=== PATIENT | female | born 1965 | race Caucasian/White ===

== ENCOUNTER 2017-02-16 05:35 | Emergency (ER) | payer OTHER ==
[~2017-02-16] VITALS: Ht 170.2 cm; Wt 63.5 kg
--- NOTE | 2017-02-16 05:40 | NUR ---
BIB [facility] FOR ASTHMA. PT STATES "WOKE UP AND HAD A ASTHMA ATTACK, RAN OUT, OF MEDICATION" PT SPEAKING IN FULL SENTENCES. PT AOX4 RR EVEN AND UNLABORED. NO SOB NOTED. NAD NOTED. NO NVD AT THIS TIME. PT GOWNED AND PLACED ON MONITOR. PER RA PLACED IV ON LEFT FA 20, INTACT AND PATENT. PER RA ON THE FIELD BS 91. PT WAITING FOR MD AREVALO.
--- NOTE | 2017-02-16 05:51 | NUR ---
DR. COON AT BEDSIDE FOR EVAL.
--- NOTE | 2017-02-16 05:53 | NUR ---
RT CALLED FOR BREATHING TX.
[2017-02-16] MEDS ORDERED: LORAZEPAM 1 MG TABLET ONE (05:54)
[2017-02-16] MEDS ORDERED: predniSONE 20 MG TABLET ONE (05:54)
[2017-02-16] MEDS ORDERED: IPRATROPIUM NEB FS 0.5 MG/2.5 ML AMPUL.NEB ONE (05:57)
[2017-02-16] MEDS ORDERED: ALBUTEROL FS 2.5 MG/3 ML VIAL.NEB ONE (05:57)
--- NOTE | 2017-02-16 05:59 | NUR ---
RT AT BEDSIDE
[2017-02-16] MEDS ORDERED: LORAZEPAM 1 MG TABLET PO ONE (06:00)
[2017-02-16] MEDS ORDERED: predniSONE 20 MG TABLET PO ONE (06:00)
[2017-02-16] MEDS ORDERED: IPRATROPIUM NEB FS 0.5 MG/2.5 ML AMPUL.NEB NEB ONE (06:00)
[2017-02-16] MEDS ORDERED: ALBUTEROL FS 2.5 MG/3 ML VIAL.NEB NEB ONE (06:00)
--- NOTE | 2017-02-16 06:14 | NUR ---
XRAY AT BEDSIDE
[2017-02-16 06:44] VITALS: BP 118/76
--- NOTE | 2017-02-16 06:44 | NUR ---
IV removed. Catheter intact and site benign. Pressure and 4x4 applied to site. No bleeding noted. Patient discharged to home in stable condition. Written and verbal after care instructions given. Patient verbalizes understanding of instruction. ambulatory with a steady gait.
== END 2017-02-16 06:46 | disposition home or self-care (01) ==
LOC: ER 05:36
DX: J45.909 Unspecified asthma, uncomplicated (principal); F41.9 Anxiety disorder, unspecified
CPT/HCPCS: 71010; 94640 ×2; 99284; A4606; J7512; Z7610

== ENCOUNTER 2019-01-21 00:38 | Inpatient (IN) | payer MEDICAID, OTHER ==
[2019-01-21] VITALS (43 sets, daily range): BP systolic 72–155; BP diastolic 21–123
[~2019-01-21] VITALS: Ht 172.7 cm; Wt 71.7 kg
--- NOTE | 2019-01-21 00:42 | NUR ---
DR. GROSSMAN, RT, RN AND EMT AT BEDSIDE FOR INTUBATION
--- NOTE | 2019-01-21 00:44 | NUR ---
PT WAS ORALLY INTUBATED IN ER WITH 7.0 ETT SECURED @ 22 CM @ THE LIP . PT PLACED ON THE VENT WITH THE SETTINGS OF AC 16,500,PEEP 5, FIO2 100% . POSITIVE COLOR CHANGED CO2 DETECTOR , EQUAL BILATERAL CHEST RISE. ETT PATENT AND SECURED. VENT PLUGGED INTO RED OUTLET, VENT ALARMS ON AND AUDIBLE. AMBU BAG AT BEDSIDE. SUCTIONED MODERATE AMOUNT OF WHITE THICK SECRETIONS. WILL CONTINUE TO MONITOR THE PT.
--- NOTE | 2019-01-21 00:44 | NUR ---
PT INTUBATED. 23 CM AT THE LIP. ET TUBE SIZE 7.
[2019-01-21] MEDS ORDERED: ROCURONIUM BROMIDE 100 MG/10 ML VIAL IV ONE (01:00)
[2019-01-21] MEDS ORDERED: ETOMIDATE 2 MG/ML VIAL IV ONE ×2 (01:00→04:00)
--- NOTE | 2019-01-21 01:00 | NUR ---
BLOOD DRAWN AND GIVEN TO LAB
--- NOTE | 2019-01-21 01:00 | NUR ---
RADIOLOGY AT BEDSIDE FOR XRAY
[2019-01-21 01:09] LABS: BASOPHILS # (AUTO) 0.3 /CMM (0.0-0.2); BASOPHILS % (AUTO) 1.7 % (0.0-2.0); EOSINOPHILS % (AUTO) 6.4 % (0.0-6.0); HEMATOCRIT 48 % (33-45); HEMOGLOBIN 15.6 g/dL (11.5-14.8); LYMPHOCYTES # (AUTO) 3.2 /CMM (0.8-4.8); LYMPHOCYTES % (AUTO) 19.7 % (20.0-44.0); MEAN CORPUSCULAR HGB CONC 33 g/dl (31.0-36.0); MEAN CORPUSCULAR VOLUME 100 fL (82-100); MONOCYTES # (AUTO) 0.9 /CMM (0.1-1.30); MONOCYTES % (AUTO) 5.3 % (2.0-12.0); NEUTROPHILS # (AUTO) 10.9 /CMM (1.8-8.9); NEUTROPHILS % (AUTO) 66.9 % (43.0-81.0); PLATELET COUNT (AUTO) 379 /CMM (150-450); WHITE BLOOD COUNT (AUTO) 16.3 K/uL (4.3-11.0)
--- NOTE | 2019-01-21 01:12 | NUR ---
CALLED FOR ICU BED
[2019-01-21] MEDS ORDERED: ALBUTEROL FS 2.5 MG/0.5 ML VIAL.NEB ONE (01:16)
[2019-01-21 01:20] LABS: CALCIUM, SERUM 9.7 mg/dL (8.5-10.1); CARBON DIOXIDE 26 mmol/L (21-32); CHLORIDE 106 mmol/L (98-107); CREATININE 1.1 mg/dL (0.6-1.3); GLUCOSE 165 mg/dL (74-106); POTASSIUM 4.1 mmol/L (3.5-5.1); SODIUM SERUM 147 mmol/L (136-145); UREA NITROGEN, BLOOD 14 mg/dL (7-18)
[2019-01-21 01:27] LABS: ALANINE AMINOTRANSFERASE 28 U/L (12-78); ALBUMIN 4.6 g/dL (3.4-5.0); ALKALINE PHOSPHATASE 133 U/L (46-116); ASPARTATE AMINOTRANSFERASE 25 U/L (15-37); BILIRUBIN,DIRECT 0.1 mg/dL (0.0-0.2); BILIRUBIN,TOTAL 0.3 mg/dL (0.2-1.0); TOTAL PROTEIN, SERUM 8.9 g/dL (6.4-8.2)
[2019-01-21] MEDS ORDERED: ALBUTEROL FS 2.5 MG/0.5 ML VIAL.NEB NEB ONE ×2 (01:30→09:30)
[2019-01-21] MEDS ORDERED: PROPOFOL 100 ML ONE (01:41)
[2019-01-21] MEDS ORDERED: IV NS 0.9% 1,000 ML BAG IV ONE ×3 (02:00→04:30)
[2019-01-21] MEDS ORDERED: PROPOFOL 100 ML IV PRN (02:00)
[2019-01-21 02:03] LABS: ABG BASE EXCESS -9.2 mmol/L; ABG OXYGEN SATURATION 99.3 % (92.0-98.5); ABG PCO2 87.4 mmHg (35.0-45.0); ABG PH 7.047 (7.350-7.450); ABG PO2 513.7 mmHg (75.0-100.0); AaDO2 111.9 mmHg; COHb 0.1 % (0.5-1.5); MetHb 0.6 % (0.0-1.5); O2Hb 98.6 % (94.0-97.0); PEEP,BG 5 cm H2O; SITE, ABG Right Radial; VENT MODE, BG AC 16; VT, ABG 500 mL
[2019-01-21 02:05] LABS: APPEARANCE,URINE SL CLOUDY (CLEAR); BILIRUBIN,URINE NEGATIVE (NEGATIVE); BLOOD, URINE 1+ Ery/uL (NEGATIVE); COLOR,URINE YELLOW (YELLOW); KETONES,URINE NEGATIVE (NEGATIVE); LEUKOCYTE ESTERASE ,URINE NEGATIVE (NEGATIVE); NITRITE, URINE NEGATIVE (NEGATIVE); PROTEIN,URINE 3+ mg/dl (NEGATIVE); UGLUCOSE 2+ mg/dL (NEGATIVE); UROBILINOGEN,URINE 0.2 EU/dL (0.2)
--- NOTE | 2019-01-21 02:10 | NUR ---
POST ABG RESULTS SHOWN TO DR. GROSSMAN. ORDERS TO CHANGE RATE TO 20.
--- NOTE | 2019-01-21 02:34 | NUR ---
PT TAKEN TO RADIOLOGY VIA [facility] WITH RT AND RN AT BEDSIDE
--- NOTE | 2019-01-21 02:59 | NUR ---
FAMILY AT BEDSIDE
--- NOTE | 2019-01-21 03:02 | NUR ---
SELF EXTUBATED. MD NOTIFIED. CALLED RT. RN AT BEDSIDE.
--- NOTE | 2019-01-21 03:09 | NUR ---
PT INTUBATED. 22 CM AT THE LIP. ET TUBE SIZE 7.
--- NOTE | 2019-01-21 03:20 | NUR ---
PT PULLED OUT THEIR ET TUBE AT 0302. PT WAS THEN INTUBATED WITH A 7.0 ETT SECURED AT 22CM AT THE LIP. EQUAL BILATERAL BREATH SOUNDS AND CHEST RISE NOTED. BOX BLANK MACHINE OPERATOR HELPER WAS DONE. PT PLACED BACK ON VENT AT AC 20, 500, 100%, +5. ALARMS SET AND AUDIBLE WTIH BVM BY BEDSIDE. SUCTIONED MODERATE AMOUNT OF THICK WHITE SECRETIONS. WILL CONT TO MONITOR PT.
--- NOTE | 2019-01-21 03:32 | NUR ---
REPORT GIVEN TO BELLA ETIENNE FOR CHARANJIT
--- NOTE | 2019-01-21 03:45 | NUR ---
PT TRANSFERRED PER ACLS PROTOCOL
--- NOTE | 2019-01-21 03:50 | NUR ---
INTERPRETER NOTES Received patient from ER intubated on AC mode,sedated on Propofol drip (received from ER @ 50 mcg/kg/min).Presented to ER c/o SOB ,stopped breathing outside the hospital ,emergently intubated in ER.Hx Asthma,HTN.Initila lactic acid=12.7 ,was given total of 3 liters NSS. 0500 Attempted borden catheter insertion by at least 3 RN's but unsuccessful.Dr. Valentin came to see patient ,made him aware that unable to see insert borden due to some anatomical issues of the patient,He as well attempted inserting borden cath hansel he was unsuccessful as well.
[2019-01-21] MEDS ORDERED: ROCURONIUM BROMIDE 50 MG/5 ML IV ONE ×2 (04:00)
[2019-01-21] MEDS: PROPOFOL 100 ML IV PRN ×5 (04:19→23:12)
[2019-01-21] MEDS ORDERED: ACETAMINOPHEN 650 MG/SUPP.RECT RC PRN (04:30)
[2019-01-21] MEDS ORDERED: NOREPINEPHRINE 8 MG in IV D5W 500 ML IV PRN ×3 (04:30→06:00)
[2019-01-21] MEDS ORDERED: ONDANSETRON HCL/PF 4 MG/2 ML VIAL IVP PRN (04:30)
[2019-01-21] MEDS ORDERED: VANCOMYCIN 1.5 GM in IV D5W 500ml IV ONE (05:00)
[2019-01-21 05:02] LABS: ALBUMIN 3.7 g/dL (3.4-5.0); BILIRUBIN,DIRECT 0.1 mg/dL (0.0-0.2); BILIRUBIN,TOTAL 0.3 mg/dL (0.2-1.0); CALCIUM, SERUM 8.3 mg/dL (8.5-10.1); CREATININE 0.9 mg/dL (0.6-1.3); POTASSIUM 4.7 mmol/L (3.5-5.1); TOTAL PROTEIN, SERUM 7.5 g/dL (6.4-8.2)
[2019-01-21] MEDS ORDERED: NOREPINEPHRINE 4 MG/4 ML AMPUL IV ONE (05:20)
[2019-01-21 05:21] LABS: BACTERIA,URINE Few /HPF (None Seen); SQUAMOUS EPITHELIAL CELL,UR Few /HPF (None Seen)
[2019-01-21] MEDS ORDERED: VANCOMYCIN 1 GM VIAL ONE (05:39)
[2019-01-21] MEDS ORDERED: PIPERACILLIN /TAZOBACTAM 2.25 G VIAL IV ONE (05:40)
[2019-01-21 05:58] LABS: ABG OXYGEN SATURATION 99.5 % (92.0-98.5); ABG PCO2 63.5 mmHg (35.0-45.0); ABG PH 7.086 (7.350-7.450); ABG PO2 599.9 mmHg (75.0-100.0); AaDO2 49.6 mmHg; COHb 0.3 % (0.5-1.5); MetHb 0.7 % (0.0-1.5); O2Hb 98.5 % (94.0-97.0); PEEP,BG 5 cm H2O; SITE, ABG Left Brachial; VT, ABG 500 mL
[2019-01-21] MEDS ORDERED: PIPERACILLIN /TAZOBACTAM 4.5 G in IV D5W 100 ML IV SCH (06:00)
[2019-01-21] MEDS ORDERED: VANCOMYCIN 500 MG VIAL IV ONE (06:30)
--- NOTE | 2019-01-21 06:30 | NUR ---
ABG results relayed to Ph-7.08,Co2-63.5,Ef0=7135.9 ,Hco3-18.7..Asked to call for ventilator changes.Puti a call to Dr. William's service [email or web address] answered Ordered to give 2 amps of Nahco3 and Fio2 down to 40%, increase rate to 24.
[2019-01-21] MEDS ORDERED: SODIUM BICARBONATE SYR 50 MEQ/50 ML DISP.SYRIN IV ONE (07:00)
[2019-01-21] MEDS ORDERED: ALBUTEROL FS 2.5 MG/0.5 ML VIAL.NEB NEB SCH (07:35)
--- NOTE | 2019-01-21 08:00 | NUR ---
received pt from retail shift leader, sedated on diprivan at 45mcg, SR, receiving levo at 18mcg, on the vent, lungs diminished, NPO, f/c, v/s stable, no pain, pt turned and repositioned.
[2019-01-21] MEDS: IPRATROPIUM NEB FS 0.5 MG/2.5 ML AMPUL.NEB NEB SCH ×5 (08:12→23:16)
[2019-01-21 08:52] LABS: ABG BASE EXCESS -11.7 mmol/L; ABG OXYGEN SATURATION 98.4 % (92.0-98.5); ABG PCO2 64.9 mmHg (35.0-45.0); ABG PH 7.086 (7.350-7.450); ABG PO2 154.8 mmHg (75.0-100.0); AaDO2 201.6 mmHg; COHb 0.4 % (0.5-1.5); MetHb 0.6 % (0.0-1.5); O2Hb 97.4 % (94.0-97.0); SITE, ABG Right Radial; VENT MODE, BG AC 24 500 60% +5
[2019-01-21] MEDS ORDERED: methylPREDNISolone SOD SUCC 40 MG/ML VIAL IV SCH (09:00)
[2019-01-21] MEDS ORDERED: HYDROCORTISONE SOD SUCCINATE 100 MG/2 ML VIAL IV SCH (09:00)
[2019-01-21] MEDS: PANTOPRAZOLE 40 MG VIAL IV SCH (09:17)
[2019-01-21] MEDS: ENOXAPARIN SODIUM 40 MG/0.4 ML DISP.SYRIN SQ SCH (09:20)
[2019-01-21] MEDS ORDERED: TERBUTALINE SULFATE 1 MG/ML VIAL SQ ONE (09:30)
[2019-01-21] MEDS ORDERED: ALBUTEROL HALF STRENGTH 1.25 MG/3 ML VIAL.NEB NEB PRN (09:30)
--- NOTE | 2019-01-21 10:00 | NUR ---
RT PT GIVEN CONT TX TO LOWER PEAK PRESSURES Q3 TX FOLLOW UP
[2019-01-21] MEDS: IV NS 0.9% 1,000 ML IV PRN ×2 (10:07→18:10)
[2019-01-21] MEDS ORDERED: FEE PK DOSING 1 MIN EA MC ONE (11:20)
[2019-01-21] MEDS: FLUDROCORTISONE 0.1 MG TABLET NG SCH ×3 (12:00→23:37)
[2019-01-21] MEDS: ZOSYN IVPB 4.5 G in IV D5W 50ml IV SCH ×3 (12:38→23:39)
[2019-01-21] MEDS: methylPREDNISolone SOD SUCC 125 MG/2ML VIAL IV SCH ×2 (12:39→18:04)
[2019-01-21] MEDS: NOREPINEPHRINE 16 MG in IV D5W 500 ML IV PRN ×2 (13:03→21:14)
[2019-01-21] MEDS: ALBUTEROL FS 2.5 MG/0.5 ML VIAL.NEB NEB SCH ×5 (14:07→22:10)
[2019-01-21] MEDS ORDERED: LORAZEPAM INJ 2 MG/ML VIAL IV PRN (15:30)
--- NOTE | 2019-01-21 16:42 | NUR ---
pt sedated on Diprivan at 60mcg, SR, receiving levo at 13mcg, v/s stable, no pain, pt cleaned, changed and repositioned q2hrs.
--- NOTE | 2019-01-21 17:39 | NUR ---
RT RECD PT INTUBATED WITH ETT 7.0 22CM AT LIP LINE SECURED. ON MECH VENT TRACY ORDERED SETTING BAG AND MASK AT HOB. VENT PLUGGED IN RED OUTLET. TXS GIVEN TRACY WELL NO ADVERSE REACTION NOTED ATT NO RESP DISTRESS ATT NO SOB ANTOINETTE CONT TO MONITOR
[2019-01-21] MEDS: VANCOMYCIN 1.25 GM in IV D5W 500 ML IV SCH (18:04)
--- NOTE | 2019-01-21 19:54 | NUR ---
PT RECEIVED ORALLY INTUBATED WITH 7.0ETT SECURED@ 22 CM ON MECHANICAL VENT W/ NOTED SETTINGS PER MD ORDER. PT IS SEDATED . VENT ALARMS CHECKED, VENT PLUGGED INTO RED OUTLET, AMBU BAG AT BEDSIDE. PT SUCTIONED AND LAVAGED PRN. BREATHING TX GIVEN PER MD ORDER, NO ADVERSE REACTION NOTED. ETT PATENT AND SECURED. GASSER MACHINE OPERATOR CUFF PRESSURE NOTED. NO RESPIRATORY DISTRESS NOTED AT THIS TIME . WILL CONTINUE TO MONITOR THE PT.
[2019-01-22] VITALS (81 sets, daily range): BP systolic 89–123; BP diastolic 62–88
[2019-01-22] MEDS: ALBUTEROL FS 2.5 MG/0.5 ML VIAL.NEB NEB SCH ×8 (01:31→22:01)
[2019-01-22] MEDS: PROPOFOL 100 ML IV PRN ×6 (02:30→22:18)
[2019-01-22] MEDS: IPRATROPIUM NEB FS 0.5 MG/2.5 ML AMPUL.NEB NEB SCH ×6 (03:24→23:50)
[2019-01-22 04:59] LABS: BASOPHILS % (AUTO) 0.1 % (0.0-2.0); HEMATOCRIT 39 % (33-45); HEMOGLOBIN 12.8 g/dL (11.5-14.8); LYMPHOCYTES # (AUTO) 0.4 /CMM (0.8-4.8); LYMPHOCYTES % (AUTO) 3.6 % (20.0-44.0); MEAN CORPUSCULAR HGB CONC 33 g/dl (31.0-36.0); MEAN CORPUSCULAR VOLUME 96 fL (82-100); MONOCYTES # (AUTO) 0.3 /CMM (0.1-1.30); NEUTROPHILS # (AUTO) 10.7 /CMM (1.8-8.9); NEUTROPHILS % (AUTO) 93.3 % (43.0-81.0); PLATELET COUNT (AUTO) 245 /CMM (150-450); WHITE BLOOD COUNT (AUTO) 11.4 K/uL (4.3-11.0)
[2019-01-22] MEDS: FLUDROCORTISONE 0.1 MG TABLET NG SCH ×4 (05:00→23:13)
[2019-01-22] MEDS: ZOSYN IVPB 4.5 G in IV D5W 50ml IV SCH ×4 (05:00→23:14)
[2019-01-22 05:21] LABS: ALBUMIN 2.9 g/dL (3.4-5.0); BILIRUBIN,TOTAL 0.5 mg/dL (0.2-1.0); CALCIUM, SERUM 7.6 mg/dL (8.5-10.1); MAGNESIUM 1.7 mg/dL (1.8-2.4); PHOSPHORUS 1.4 mg/dL (2.5-4.9); POTASSIUM 3.8 mmol/L (3.5-5.1); TOTAL PROTEIN, SERUM 6.3 g/dL (6.4-8.2)
[2019-01-22] MEDS: VANCOMYCIN 1.25 GM in IV D5W 500 ML IV SCH ×2 (05:30→17:30)
--- NOTE | 2019-01-22 06:58 | NUR ---
SENIOR CLINICAL PROJECT MANAGER TITRATED LEVOPHED TO 3 MCG/MIN. CONTINUE TO MONITOR.
--- NOTE | 2019-01-22 07:55 | NUR ---
WOUND CARE CONSULT: PT PRESENTS WITH INTACT SKIN. PT CURRENTLY WITH BIBI OF 11 AND INTUBATED. RECOMMENDATIONS MADE FOR SKIN PROTECTION. DISCUSSED WITH NURSING STAFF. PT ON MARICOPA ISOFLEX LOW AIRLOSS BED. WILL SEE PRN.
[2019-01-22] MEDS: IV NS 0.9% 1,000 ML IV PRN ×2 (07:58→21:57)
[2019-01-22] MEDS: PANTOPRAZOLE 40 MG VIAL IV SCH (08:03)
[2019-01-22] MEDS: methylPREDNISolone SOD SUCC 125 MG/2ML VIAL IV SCH ×3 (08:03→16:43)
[2019-01-22] MEDS: ENOXAPARIN SODIUM 40 MG/0.4 ML DISP.SYRIN SQ SCH (08:06)
--- NOTE | 2019-01-22 08:38 | NUR ---
received pt from shift commander, sedated on Diprivan at 70mcg, SR, receiving levo at 3mcg, on the vent, lungs partially congested, no edema, NPO, f/c good output, restraints on, v/s stable, no pain, pt turned and repositioned.
[2019-01-22 09:26] LABS: ABG BASE EXCESS -1.9 mmol/L; ABG OXYGEN SATURATION 98.7 % (92.0-98.5); ABG PCO2 41.1 mmHg (35.0-45.0); ABG PO2 164.2 mmHg (75.0-100.0); AaDO2 146.1 mmHg; COHb 0.1 % (0.5-1.5); MetHb 0.6 % (0.0-1.5); PEEP,BG 0 cm H2O; VENT MODE, BG AC 18 500 50% +0
[2019-01-22] MEDS: NOREPINEPHRINE 16 MG in IV D5W 500 ML IV PRN (09:32)
[2019-01-22] MEDS: Magnesium 1GM/D5W 100ML PREMIX 100 ML IV SCH ×2 (10:41→12:36)
--- NOTE | 2019-01-22 11:38 | NUR ---
RT NOTE RECEIVED PT MECHANICALLY VENTILATED VIA 7.0 ETT 22 CM AT LIP. CUFF INFLATED. ETT SECURE. VENTILATOR SETTINGS PRESCRIBED. ALARMS SET PER PROTOCOL AND AUDIBLE. VENT PLUGGED IN TO RED OUTLET. AMBU BAG AT BED SIDE. NO DISTRESS NOTED AT MOMENT. Addendum: 01/22/19 at 1138 by PARKER LOPEZ RT Amended: Links added.
[2019-01-22] MEDS ORDERED: Sodium Phosphate 15 MMOL in IV D5W 250 ML IV ONE (16:00)
--- NOTE | 2019-01-22 16:21 | NUR ---
pt is sedated on diprivan at 70mcg, SR, receiving levo at 2mcg, good urine output, restraints on, v/s stable, no pain, pt cleaned, changed and repositioned q2hrs.
[2019-01-23] VITALS (63 sets, daily range): BP systolic 94–146; BP diastolic 40–108
[2019-01-23] MEDS: PROPOFOL 100 ML IV PRN ×2 (01:41→05:00)
[2019-01-23] MEDS: ALBUTEROL FS 2.5 MG/0.5 ML VIAL.NEB NEB SCH ×7 (01:50→23:13)
[2019-01-23] MEDS: IPRATROPIUM NEB FS 0.5 MG/2.5 ML AMPUL.NEB NEB SCH ×6 (04:04→23:14)
[2019-01-23 04:38] LABS: BASOPHILS % (AUTO) 0.1 % (0.0-2.0); HEMATOCRIT 38 % (33-45); HEMOGLOBIN 12.8 g/dL (11.5-14.8); LYMPHOCYTES # (AUTO) 0.3 /CMM (0.8-4.8); LYMPHOCYTES % (AUTO) 3.1 % (20.0-44.0); MEAN CORPUSCULAR HGB CONC 34 g/dl (31.0-36.0); MEAN CORPUSCULAR VOLUME 95 fL (82-100); MONOCYTES # (AUTO) 0.5 /CMM (0.1-1.30); MONOCYTES % (AUTO) 4.4 % (2.0-12.0); NEUTROPHILS # (AUTO) 10.3 /CMM (1.8-8.9); NEUTROPHILS % (AUTO) 92.4 % (43.0-81.0); PLATELET COUNT (AUTO) 210 /CMM (150-450); RED BLOOD CELL COUNT(AUTO) 3.99 MIL/uL (4.0-5.2); WHITE BLOOD COUNT (AUTO) 11.1 K/uL (4.3-11.0)
[2019-01-23 04:50] LABS: CALCIUM, SERUM 8.2 mg/dL (8.5-10.1); CREATININE 0.7 mg/dL (0.6-1.3); PHOSPHORUS 2.2 mg/dL (2.5-4.9); POTASSIUM 3.1 mmol/L (3.5-5.1)
[2019-01-23] MEDS: FLUDROCORTISONE 0.1 MG TABLET NG SCH ×3 (05:03→17:03)
[2019-01-23] MEDS: ZOSYN IVPB 4.5 G in IV D5W 50ml IV SCH ×3 (05:05→17:03)
[2019-01-23] MEDS: VANCOMYCIN 1.25 GM in IV D5W 500 ML IV SCH ×2 (05:59→18:03)
--- NOTE | 2019-01-23 07:05 | NUR ---
PT REMAINS IN NO ACUTE DISTRESS IN BED. PT DID NOT HAVE ANY SIGNIFICANT CHANGE IN CONDITION DURING SHIFT. ALL NEEDS MET, ALL ORDERS CARRIED OUT. PT TOLERATED VENT SETTING WELL. WILL ENDORSE CARE TO AM RN FOR CONTINUITY OF CARE.
[2019-01-23] MEDS: POTASSIUM CL. PREMIX PERIPHER. 50 ML IV SCH ×4 (07:44→10:33)
[2019-01-23] MEDS: PANTOPRAZOLE 40 MG VIAL IV SCH (08:00)
[2019-01-23] MEDS: methylPREDNISolone SOD SUCC 125 MG/2ML VIAL IV SCH ×3 (08:00→17:03)
[2019-01-23] MEDS ORDERED: DC PROPOFOL WHEN EXTUBATED XX PRN (08:00)
--- NOTE | 2019-01-23 08:00 | NUR ---
received pt from night cleaner, sedate on dipirivan at 70mcg, SR, on levo at 1mcg, v/s stable, no pain, good urine output, pt turned and repositioned.
[2019-01-23] MEDS: ENOXAPARIN SODIUM 40 MG/0.4 ML DISP.SYRIN SQ SCH (08:01)
--- NOTE | 2019-01-23 08:40 | NUR ---
pt on SIMV mode
--- NOTE | 2019-01-23 08:45 | NUR ---
VENT CHANGES BELOW MADE PER FOR WEANING TRIAL: SIMV 4 VT 500 PS 15 FIO2 50% PEEP +5 Addendum: 01/23/19 at 0856 by ARCENIO AHN RT Amended: Links added.
--- NOTE | 2019-01-23 10:01 | NUR ---
PT IS AWAKE AND FOLLOW COMMANDS TRYING GET UP FROM THE BED, EXTUBATED PER MD ORDER. PLACED ON NASAL CANNULA @ 2LPM O2 FLOW. SPO2 97% RR 18 - 21BPM HR 99 -107 BPM Addendum: 01/23/19 at 1003 by ARCENIO AHN RT Amended: Links added.
--- NOTE | 2019-01-23 10:01 | NUR ---
pt is extubated, alert, follows commands, v/s stable, no pain.
--- NOTE | 2019-01-23 11:05 | NUR ---
CT PENDING FOR 3 DAYS, ORDERED BY ER DR NOW TRANSFERRED TO ICU CX CT PER VIDEO GAME TESTER
--- NOTE | 2019-01-23 12:16 | NUR ---
pt is resting in the bed, alert, on 3L 02, v/s stable, no pain, friend at the bedside.
[2019-01-23] MEDS ORDERED: NEUTRA PHOS 1 POWD.PACKET PO ONE (13:00)
--- NOTE | 2019-01-23 16:26 | NUR ---
pt is resting in the bed, alert, confused at times, SR, on 3L 02 sat well, v/s stable, no pain, pt cleaned and changed.
--- NOTE | 2019-01-23 19:30 | NUR ---
CLINICAL SUPPORT TECH NOTE RECEIVED PT A/O X1-2 WITH NOTED CONFUSION AND ANXIETY. ON 2L OF O2 VIA NC AND SATURATING WELL. BREATHING UNLABORED. NOTED WITH A NONPRODUCTIVE COUGH. HOB ELEVATED AND ON ASPIRATION PRECAUTIONS. IV ISAIAH PICC CLEAN, DRY AND PATENT. SNOW CATHETER IN PLACE AND DRAINING BY GRAVITY. BED LOCKED IN PLACE AND BED ALARM ENABLED. CALL LIGHT WITHIN REACH. WILL CONTINUE TO MONITOR.
--- NOTE | 2019-01-23 20:00 | NUR ---
SENIOR QUALITY MANAGER NOTE PT NOTED WITH CONFUSION AND ASKING FOR . CALLED AND HE WILL STOP BY TO SEE PT. REORIENTED PT TO ROOM. FREQUENT VISUAL MONITORING.
[2019-01-24] VITALS (21 sets, daily range): BP systolic 105–150; BP diastolic 72–109
--- NOTE | 2019-01-24 | NUR ---
OIL SPOT WASHER NOTE OF PT AT BEDSIDE.
[2019-01-24] MEDS: IPRATROPIUM NEB FS 0.5 MG/2.5 ML AMPUL.NEB NEB SCH ×6 (02:31→22:58)
[2019-01-24] MEDS: ALBUTEROL FS 2.5 MG/0.5 ML VIAL.NEB NEB SCH ×6 (02:31→22:58)
[2019-01-24 04:50] LABS: HEMATOCRIT 36 % (33-45); HEMOGLOBIN 12.2 g/dL (11.5-14.8); LYMPHOCYTES # (AUTO) 0.3 /CMM (0.8-4.8); LYMPHOCYTES % (AUTO) 2.7 % (20.0-44.0); MEAN CORPUSCULAR HGB CONC 34 g/dl (31.0-36.0); MEAN CORPUSCULAR VOLUME 94 fL (82-100); MONOCYTES # (AUTO) 0.6 /CMM (0.1-1.30); MONOCYTES % (AUTO) 4.6 % (2.0-12.0); NEUTROPHILS # (AUTO) 11.4 /CMM (1.8-8.9); NEUTROPHILS % (AUTO) 92.7 % (43.0-81.0); PLATELET COUNT (AUTO) 208 /CMM (150-450); RED BLOOD CELL COUNT(AUTO) 3.79 MIL/uL (4.0-5.2); WHITE BLOOD COUNT (AUTO) 12.3 K/uL (4.3-11.0)
[2019-01-24 04:59] LABS: ALBUMIN 2.9 g/dL (3.4-5.0); BILIRUBIN,TOTAL 0.4 mg/dL (0.2-1.0); CALCIUM, SERUM 8.5 mg/dL (8.5-10.1); CREATININE 0.7 mg/dL (0.6-1.3); MAGNESIUM 2.6 mg/dL (1.8-2.4); PHOSPHORUS 2.5 mg/dL (2.5-4.9); POTASSIUM 3.4 mmol/L (3.5-5.1); TOTAL PROTEIN, SERUM 6.3 g/dL (6.4-8.2)
[2019-01-24] MEDS: FLUDROCORTISONE 0.1 MG TABLET NG SCH ×4 (05:03→19:09)
[2019-01-24] MEDS: ZOSYN IVPB 4.5 G in IV D5W 50ml IV SCH ×3 (05:03)
[2019-01-24] MEDS: VANCOMYCIN 1.25 GM in IV D5W 500 ML IV SCH ×2 (05:40→19:10)
--- NOTE | 2019-01-24 07:00 | NUR ---
NURSE ADVOCATE OPENING NOTES RECEIVED PT IN BED, AGITATED AND YELLING OUT. ON 3L NC. LABORED BREATHING WITH WHEEZING NOTED. O2 SAT 89% ST ON TELE. NOTIFIED RT OF NEED FOR BREATHING TX. DR METZ AT BEDSIDE. PT IS A/OX3. STATES "I SAW THE NURSE TALKING TO MY NOW." PT'S WAS IN FACT NOT ON THE FLOOR. PT APPEARS TO BE HAVING HALLUCINATIONS/CONFUSED AT TIMES. PT REORIEDNTED. BED IN LOCKED/LOWEST POSITION.CALL LIGHT IN REACH. WILL CONT TO MONITOR.
--- NOTE | 2019-01-24 07:06 | NUR ---
RT NOTE PT REFUSED O700 BREATHING TX. PT CONTINUOUSLY REFUSES ASKS TO SPEAK TO . PT STABLE. NO SOB NOTED. WILL CONTINUE TO MONITOR. Addendum: 01/24/19 at 0708 by PARKER LOPEZ RT Amended: Links added.
--- NOTE | 2019-01-24 07:35 | NUR ---
MANAGER TECHNICAL TRAINING NOTE PT REMAINED STABLE DURING SHIFT. NO ACUTE DISTRESS NOTED. PT CONFUSED AT TIMES. ASKING TO SPEAK WITH . ALL NEEDS ATTENDED TO PROMPTLY. KEPT CLEAN AND DRY. WILL ENDORSE TO NEXT SHIFT FOR CONTINUITY OF CARE.
[2019-01-24] MEDS ORDERED: POTASSIUM CHLORIDE 20 MEQ TAB.PRT.SR PO SCH (08:00)
[2019-01-24] MEDS: PANTOPRAZOLE 40 MG TABLET.DR PO SCH (09:00)
[2019-01-24] MEDS: methylPREDNISolone SOD SUCC 125 MG/2ML VIAL IV SCH ×2 (09:00→17:00)
[2019-01-24] MEDS: ENOXAPARIN SODIUM 40 MG/0.4 ML DISP.SYRIN SQ SCH (09:01)
--- NOTE | 2019-01-24 12:00 | NUR ---
DRAWER IN [facility] LOOM NOTES PER DR ABBEY CAMPO TO TRANSFER TO [facility]
[2019-01-24] MEDS: PIPERACILLIN /TAZOBACTAM 3.375 G in IV D5W 50 ML IV SCH ×3 (13:01→23:46)
--- NOTE | 2019-01-24 17:30 | NUR ---
ASPNET DEVELOPER NOTE REPORT GIVEN TO BELLA SANCHEZ ON MS FLOOR. PT TRANSPORTED TO [address] [place] [address] ON WHEELCHAIR. BELONGINGS WITH PATIENT. NO S/SX OF DISTRESS NOTED DURING TRANSPORTATION.
--- NOTE | 2019-01-24 17:40 | NUR ---
RN MS NOTES RECEIVED PT FROM ICU NURSE JEANA RN, VIA WHEELCHAIR, PT IS AWAKE, ALERT AND VERBALLY RESPONSIVE, ASSISTED TO BED, MADE COMFORTABLE, ROOM SET UP ORIENTATION PROVIDED , VERBALIZED UNDERSTANDING, NO COMPLAINT OF PAIN OR ANY DISCOMFORT, NOT IN RESPIRATORY DISTRESS, NEEDS ATTENDED, VISITED BY FRIEND.
--- NOTE | 2019-01-24 19:00 | NUR ---
RN MS OPENING NOTES RECEIVED PATIENT IN BED AWAKE ALERT AND ORIENTED X 3, WITH PERIODS OF CONFUSION, RESPIRATIONS EVEN AND UNLABORED WITH EQUAL RISE AND FALL OF CHEST, ON 3 L VIA NC, NO SOB PRESENT,DENIES ANY PAIN OR DISCOMFORT AT THIS TIME, SNOW CATHETER INTACT AND DRAINING URINE YELLOW, SKIN ASSESSED INTACT, RIGHT UPPER ARM PICC INTACT AND PATENT,DRESSING CLEAN, DRY AND INTACT, NO REDNESS NO INFILTRATION PRESENT, ORIENTED TO STAFF AND CALL LIGHT AND KEPT WITHIN REACH, SAFETY PRECAUTIONS IN PLACE, LOW BED AND LOCKED, FLUIDS OFFERED, WILL CONTINUE TO MONITOR.
--- NOTE | 2019-01-24 19:00 | NUR ---
RN MS NOTES PT SITTING IN BED, EATING DINNER, TOLERATING CURRENT DIET WELL, NO COMPLAINT OF PAIN, NO SOB, PM MEDS GIVEN ORDERED, PICC LINE AT RIGHT UPPER ARM INTACT AND PATENT, CALL LIGHT WITHIN REACH, ALL NEEDS ATTENDED.
[2019-01-25] MEDS ORDERED: FLUDROCORTISONE 0.1 MG TABLET ONE (00:07)
[2019-01-25] MEDS: FLUDROCORTISONE 0.1 MG TABLET NG SCH ×2 (00:09→05:14)
[2019-01-25] MEDS: ALBUTEROL FS 2.5 MG/0.5 ML VIAL.NEB NEB SCH ×6 (02:48→23:20)
[2019-01-25] MEDS: IPRATROPIUM NEB FS 0.5 MG/2.5 ML AMPUL.NEB NEB SCH ×6 (02:48→23:20)
[2019-01-25] MEDS: PIPERACILLIN /TAZOBACTAM 3.375 G in IV D5W 50 ML IV SCH ×3 (05:06→17:00)
[2019-01-25] MEDS: VANCOMYCIN 1.25 GM in IV D5W 500 ML IV SCH ×2 (06:30→17:33)
[2019-01-25 06:42] LABS: BASOPHILS % (AUTO) 0.1 % (0.0-2.0); HEMATOCRIT 33 % (33-45); HEMOGLOBIN 11.2 g/dL (11.5-14.8); LYMPHOCYTES # (AUTO) 0.7 /CMM (0.8-4.8); LYMPHOCYTES % (AUTO) 10.2 % (20.0-44.0); MEAN CORPUSCULAR HGB CONC 34 g/dl (31.0-36.0); MEAN CORPUSCULAR VOLUME 95 fL (82-100); MONOCYTES # (AUTO) 0.5 /CMM (0.1-1.30); MONOCYTES % (AUTO) 6.7 % (2.0-12.0); NEUTROPHILS # (AUTO) 5.9 /CMM (1.8-8.9); PLATELET COUNT (AUTO) 179 /CMM (150-450); RED BLOOD CELL COUNT(AUTO) 3.49 MIL/uL (4.0-5.2); WHITE BLOOD COUNT (AUTO) 7.1 K/uL (4.3-11.0)
--- NOTE | 2019-01-25 06:48 | NUR ---
RN MS CLOSING NOTES PATIENT IN BED AWAKE ALERT AND ORIENTED X 3, WITH PERIODS OF CONFUSION, RESPIRATIONS EVEN AND UNLABORED WITH EQUAL RISE AND FALL OF CHEST, ON 3 L VIA NC, NO SOB PRESENT,DENIES ANY PAIN OR DISCOMFORT AT THIS TIME, SNOW CATHETER INTACT AND DRAINING URINE YELLOW, SKIN ASSESSED INTACT, RIGHT UPPER ARM PICC INTACT AND PATENT,DRESSING CLEAN, DRY AND INTACT, NO REDNESS NO INFILTRATION PRESENT, CALL LIGHT KEPT WITHIN REACH, SAFETY PRECAUTIONS IN PLACE, LOW BED AND LOCKED, FLUIDS OFFERED, WILL CONTINUE TO MONITOR AND ENDORSE TO NEXT SHIFT, ALL ANTIBIOTICS GIVEN, NO CHANGE THROUGHOUT SHIFT.
[2019-01-25 06:56] LABS: CALCIUM, SERUM 8.3 mg/dL (8.5-10.1); CREATININE 0.8 mg/dL (0.6-1.3); POTASSIUM 3.6 mmol/L (3.5-5.1)
--- NOTE | 2019-01-25 07:30 | NUR ---
MS RN OPENING NOTES RECEIVED PT LAYING IN BED WITH HOB SLIGHTLY ELEVATED. PT IS A/OX3, AFEBRILE. RESPIRATIONS ARE EVEN AND UNLABORED, NOT IN ANY ACUTE DISTRESS NOTED. PT DENIES ANY PAIN, SOB, N/V. PICCLINE TO ISAIAH INTACT, NO INFILTRATION NOTED. DRESSING KEPT CLEAN AND DRY. SAFETY MEASURES ARE IN PLACE. INSTRUCTED PT TO USE CALL LIGHT WHEN ASSISTANCE IS NEEDED, CALL LIGHT IS LEFT WITHIN REACH. WILL MONITOR THROUGHOUT SHIFT FOR CONTINUITY OF CARE.
[2019-01-25 08:00] VITALS: BP 126/84
--- NOTE | 2019-01-25 08:30 | NUR ---
MS RN NOTES-- PT SEEN AND EXAMINED BY DR. QIANA Patel/ ORDERS FOR PT EVAL.
[2019-01-25] MEDS: ENOXAPARIN SODIUM 40 MG/0.4 ML DISP.SYRIN SQ SCH (09:00)
[2019-01-25] MEDS: PANTOPRAZOLE 40 MG TABLET.DR PO SCH (09:00)
[2019-01-25] MEDS: methylPREDNISolone SOD SUCC 125 MG/2ML VIAL IV SCH ×2 (09:02→16:07)
--- NOTE | 2019-01-25 09:09 | NUR ---
MS RN NOTES-- PT SEEN AND EXAMINED BY DR. METZ W/ ORDERS FOR 1X DOSE OF DIURETICS AND TO Becky/Alanis SNOW LATER THIS AFTERNOON.
[2019-01-25] MEDS: POTASSIUM CHLORIDE 20 MEQ TAB.PRT.SR PO SCH (09:28)
[2019-01-25] MEDS ORDERED: FUROSEMIDE 20 MG/2 ML VIAL IV ONE (09:30)
[2019-01-25 15:59] VITALS: BP 117/87
--- NOTE | 2019-01-25 16:41 | NUR ---
MS RN NOTES-- EDY REMOVED. PT TOLERATED WELL. INSTRUCTED PT TO USE CALL LIGHT WHEN ASSISTANCE IS NEEDED, CALL LIGHT IS LEFT WITHIN REACH.
--- NOTE | 2019-01-25 16:55 | NUR ---
MS RN NOTES-- PER RUBEN IN PHARMACY AND PER SHAY'S NOTES, OKAY TO CONTINUE VANCO DOSE FOR NOW.
--- NOTE | 2019-01-25 17:50 | NUR ---
RT NOTE PER POLICY, PT IS NO LONGER IN ICU AND DOES NOT NEED DAILY ABG'S.
--- NOTE | 2019-01-25 18:25 | NUR ---
MS RN CLOSING NOTES ALL DUE MEDS GIVEN, NEEDS MET AND RENDERED. PT REMAINS A/OX3, AFEBRILE. RESPIRATIONS ARE EVEN AND UNLABORED, NOT IN ANY ACUTE DISTRESS NOTED. PT DENIES ANY PAIN AT THIS TIME, NO C/O SOB, N/V. PICC LINE TO ISAIAH INTACT, NO INFILTRATION NOTED. DRESSING KEPT CLEAN AND DRY. SAFETY MEASURES ARE IN PLACE. REMINDED PT TO USE CALL LIGHT WHEN ASSISTANCE IS NEEDED, CALL LIGHT IS LEFT WITHIN REACH. WILL ENDORSE TO NEXT SHIFT FOR CONTINUITY OF CARE.
[2019-01-25 20:00] VITALS: BP 121/87
--- NOTE | 2019-01-25 20:00 | NUR ---
MS RN NOTES RECEIVED PATIENT AWAKE IN BED WITH NO DISTRESS NOTED. CALL LIGHT WITHIN REACH. VISITOR AT BEDSIDE. PICC LINE INTACT AND PATENT. NO C/O PAIN OR DISCOMFORT. BED IN LOW LOCK SETTING. BED ALARM ON AND FUNCTIONING FOR EPISODES OF CONFUSION. ALL BELONGINGS KEPT NEAR BEDSIDE. WILL CONTINUE TO MONITOR
[2019-01-26] MEDS: IPRATROPIUM NEB FS 0.5 MG/2.5 ML AMPUL.NEB NEB SCH ×6 (03:18→23:30)
[2019-01-26] MEDS: ALBUTEROL FS 2.5 MG/0.5 ML VIAL.NEB NEB SCH ×6 (03:18→23:30)
[2019-01-26 06:26] LABS: BASOPHILS % (AUTO) 0.2 % (0.0-2.0); EOSINOPHILS % (AUTO) 0.2 % (0.0-6.0); HEMATOCRIT 37 % (33-45); HEMOGLOBIN 12.4 g/dL (11.5-14.8); LYMPHOCYTES # (AUTO) 0.7 /CMM (0.8-4.8); MEAN CORPUSCULAR HGB CONC 34 g/dl (31.0-36.0); MEAN CORPUSCULAR VOLUME 96 fL (82-100); MONOCYTES # (AUTO) 0.5 /CMM (0.1-1.30); MONOCYTES % (AUTO) 8.6 % (2.0-12.0); NEUTROPHILS # (AUTO) 4.3 /CMM (1.8-8.9); PLATELET COUNT (AUTO) 188 /CMM (150-450); RED BLOOD CELL COUNT(AUTO) 3.83 MIL/uL (4.0-5.2); WHITE BLOOD COUNT (AUTO) 5.5 K/uL (4.3-11.0)
[2019-01-26 07:15] LABS: ALBUMIN 3.1 g/dL (3.4-5.0); BILIRUBIN,TOTAL 0.5 mg/dL (0.2-1.0); CREATININE 0.8 mg/dL (0.6-1.3); MAGNESIUM 2.5 mg/dL (1.8-2.4); PHOSPHORUS 2.8 mg/dL (2.5-4.9); POTASSIUM 4.1 mmol/L (3.5-5.1); TOTAL PROTEIN, SERUM 6.8 g/dL (6.4-8.2)
--- NOTE | 2019-01-26 07:37 | NUR ---
MS RN NOTES PATIENT AWAKE IN BED WITH NO DISTRESS NOTED. CALL LIGHT WITHIN REACH. NO C/O PAIN OR DISCOMFORT. PICC LINE INTACT AND PATENT. ALL DUE MEDS GIVEN ORDERED WITH NO ASE NOTED. NO RESPIRATORY DISTRESS NOTED. BED IN LOW LOCK SETTING. ROOM FREE OF CLUTTER AND ALL BELONGINGS KEPT NEAR BEDSIDE. WILL ENDORSE TO ONCOMING SHIFT.
--- NOTE | 2019-01-26 07:48 | NUR ---
MS RN OPENING NOTE RECEIVED PATIENT IN BED. ALERT ORIENTED X 3. ON 2L O2 VIA NC, TOLERATING WELL. IN NO APPARENT DISTRESS OR DISCOMFORT AT THIS TIME. RESPIRATIONS EVEN AND UNLABORED. PATIENT IS ABLE TO COMMUNICATE NEEDS. RIGHT UPPER ARM PICC LINE IN PLACE, SL, PATENT AND INTACT. PATIENT KEPT CLEAN AND COMFORTABLE. ALL NEEDS ATTENDED, SAFETY MEASURES IN PLACE, BED IN LOW LOCKED POSITION. SIDE RAILS UP X2, ALARM ON, CALL LIGHT WITHIN EASY REACH. WILL CONTINUE TO MONITOR.
[2019-01-26 08:00] VITALS: BP 113/87
[2019-01-26 08:02] LABS: BAND % (MANUAL) 2 % (0.0-5.0); LYMPHOCYTES % (MANUAL) 11 % (16-48); MONOCYTES % (MANUAL) 8 % (0-11.0); NEUTROPHILS % (MANUAL) 79 (42-76)
[2019-01-26] MEDS: methylPREDNISolone SOD SUCC 125 MG/2ML VIAL IV SCH (08:14)
[2019-01-26] MEDS: PANTOPRAZOLE 40 MG TABLET.DR PO SCH (08:14)
[2019-01-26] MEDS: POTASSIUM CHLORIDE 20 MEQ TAB.PRT.SR PO SCH (08:14)
[2019-01-26] MEDS: ENOXAPARIN SODIUM 40 MG/0.4 ML DISP.SYRIN SQ SCH (08:16)
[2019-01-26] MEDS ORDERED: FUROSEMIDE 20 MG/2 ML VIAL IV ONE (09:30)
[2019-01-26 16:00] VITALS: BP 107/83
--- NOTE | 2019-01-26 18:35 | NUR ---
PATIENT WALKING AROUND THE UNIT AT THIS TIME WITH STAND BY ASSIST. ON ROOM AIR SATURATING BETWEEN 92-94%. will continue to monitor.
--- NOTE | 2019-01-26 19:00 | NUR ---
MS RN CLOSING NOTE PATIENT IN BED. ALERT ORIENTED X 3. ON ROOM AIR, TOLERATING WELL. IN NO APPARENT DISTRESS OR DISCOMFORT AT THIS TIME. RESPIRATIONS EVEN AND UNLABORED. DENIES PAIN AND SOB. PATIENT IS ABLE TO COMMUNICATE NEEDS. RIGHT UPPER ARM PICC LINE IN PLACE, SL, PATENT AND INTACT. PATIENT KEPT CLEAN AND COMFORTABLE. ALL NEEDS ATTENDED, ORDERS RENDERED. SAFETY MEASURES IN PLACE, BED IN LOW LOCKED POSITION. SIDE RAILS UP X2, ALARM ON, CALL LIGHT WITHIN EASY REACH. WILL ENDORSE TO PM NURSE FOR CHARANJIT.
--- NOTE | 2019-01-26 19:10 | NUR ---
MS RN NOTE RECEIVED PT IN BED AWAKE AND ABLE TO MAKE NEEDS KNOWN. PT A/O X3. PT ON ROOM AIR AND TOLERATING WELL. RESPIRATIONS EVEN AND UNLABORED WITH NO S/S OF ACUTE DISTRESS OR SOB NOTED. RIGHT UPPER ARM PICC LINE PATENT AND INTACT, SL. SAFETY MEASURES IN PLACE WITH BED IN LOW LOCKED POSITION AND SIDE RAILS UP X2. CALL LIGHT WITHIN REACH. WILL CONTINUE TO MONITOR.
[2019-01-26 20:48] VITALS: BP 102/80
--- NOTE | 2019-01-27 02:30 | NUR ---
RECEIVED REPORT FROM BELLA JUNG AND FOUND PT IN BED AWAKE AND ALERT. BREATHING EVENLY. NO SOB. REPORTED R/A TRACY WELL. NO RESPIRATORY DISTRESS. NO C/O PAIN OR DISCOMFORT. NEEDS MET. CALL LIGHT WITHIN REACH, WILL CONT TO MONITOR.
[2019-01-27] MEDS: ALBUTEROL FS 2.5 MG/0.5 ML VIAL.NEB NEB SCH ×3 (02:43→11:51)
[2019-01-27] MEDS: IPRATROPIUM NEB FS 0.5 MG/2.5 ML AMPUL.NEB NEB SCH ×3 (02:43→11:50)
--- NOTE | 2019-01-27 06:36 | NUR ---
PT IN BED AWAKE AND RESPONSIVE. BREATHING EVENLY. NO SOB. NO ACUTE EVENT DURING THE NIGHT. NO C/O DISCOMFORT. NEEDS ATTENDED. BED LOW LOCKED. CALL LIGHT WITHIN REACH,. WILL CONT TO MONITOR AND WILL ENDORSE TO AM SHIFT FOR CHARANJIT.
[2019-01-27 06:38] LABS: CALCIUM, SERUM 8.4 mg/dL (8.5-10.1); CREATININE 0.7 mg/dL (0.6-1.3); POTASSIUM 3.3 mmol/L (3.5-5.1)
--- NOTE | 2019-01-27 07:39 | NUR ---
RN NOTES PT AWAKE AND RESTING IN BED NO COMPLAINTS OF PAIN, SOB OR DISTRESS AT THIS TIME. PER PATIENT SHE WANTS TO GO HOME TODAY. PT HAS A ISAIAH PICC LINE INTACT AND PATENT. PT SATING WELL ON RA. SAFETY PRECAUTIONS IN PLACE, BED IN LOWEST LOCKED POSITION, X2 SIDERAILS UP AND CALL LIGHT WITHIN REACH. WILL CONTINUE TO MONITOR.
[2019-01-27 08:00] VITALS: BP 99/68
[2019-01-27] MEDS: ENOXAPARIN SODIUM 40 MG/0.4 ML DISP.SYRIN SQ SCH (08:39)
[2019-01-27] MEDS: PANTOPRAZOLE 40 MG TABLET.DR PO SCH (08:39)
[2019-01-27] MEDS ORDERED: methylPREDNISolone SOD SUCC 125 MG/2ML VIAL IV SCH (09:00)
[2019-01-27] MEDS ORDERED: POTASSIUM CHLORIDE 20 MEQ TAB.PRT.SR PO SCH (09:00)
[2019-01-27] MEDS ORDERED: IPRA0.2S9 NEB (10:44)
[2019-01-27] MEDS ORDERED: ALBU2.5V13 NEB (10:44)
[2019-01-27] MEDS ORDERED: METH4TAB3 PO (10:44)
--- NOTE | 2019-01-27 14:18 | NUR ---
ATHLETIC TURF WORKER NOTES PT STABLE AT DISCHARGE. VITAL SIGNS STABLE. NO COMPLAINTS OF PAIN, SOB OR DISTRESS. ALL PATIENT BELONGINGS TAKEN HOME WITH PATIENT. PT BELONGING LIST SIGNED AND COPIED. ALL DISCHARGE PAPERWORK, EXPLAINED, SIGNED, COPIED AND ORIGINALS GIVEN TO PATIENT. PT PRESCRIPTION GIVEN TO PATIENT TO FILL. PT SKIN INTACT. PT PICC LINE REMOVED BEFORE DISCHARGE. PT ESCORTED OFF THE UNIT AT 1415 VIA RN, PT RECEIVED BY RANCHO. PT WILL BE GOING HOME VIA PRIVATE CARE.
== END 2019-01-27 14:15 | disposition home or self-care (01) | DRG 720 ==
LOC: ER 00:40 → ICU 02:15 → MED 01-24 17:37
PROVIDERS: ADMIT Internal Medicine; ATTEND Internal Medicine
PROC: 5A1945Z Respiratory Ventilation, 24-96 Consecutive Hours (ICD-10-PCS; principal; 2019-01-21)
PROC: 0BH17EZ Insertion of Endotracheal Airway into Trachea, Via Natural or Artificial Opening (ICD-10-PCS; principal; 2019-01-21)
PROC: B548ZZA Ultrasonography of Superior Vena Cava, Guidance (ICD-10-PCS; 2019-01-21)
PROC: 02HV33Z Insertion of Infusion Device into Superior Vena Cava, Percutaneous Approach (ICD-10-PCS; 2019-01-21)
DX: A41.9 Sepsis, unspecified organism (principal); I21.A1 Myocardial infarction type 2; J96.01 Acute respiratory failure with hypoxia; J96.02 Acute respiratory failure with hypercapnia; G93.41 Metabolic encephalopathy; E87.4 Mixed disorder of acid-base balance; E44.0 Moderate protein-calorie malnutrition; J45.902 Unspecified asthma with status asthmaticus; F10.129 Alcohol abuse with intoxication, unspecified; F41.9 Anxiety disorder, unspecified; E87.0 Hyperosmolality and hypernatremia; E86.1 Hypovolemia; E87.6 Hypokalemia; I10 Essential (primary) hypertension
CPT/HCPCS: 31720; 36415; 36600; 70450-TC; 71045-TC; 74018; 80048-TC; 80053-TC; 80076-TC; 80202-TC; 80305; 81000-TC; 82533; 82803-TC; 83605-TC; 83735-TC; 84100-TC; 84484-TC; 85025-TC; 85730-TC; 87040-TC; 87070-TC; 87081-TC; 87086-TC; 93307-TC; 94002-TC; 94003-TC; 94640-TC; 94799-TC; 99082-TC; A9563; C1751; C9113; G0378; G0480; J1650; J1720; J1940; J2060; J2543; J2930; J3105; J3370; J3475; J3480; J3490; J7030; J7050; J7060